=== PATIENT | female | born 1985 | race Caucasian/White ===

== ENCOUNTER 2017-01-08 07:52 | Emergency (ER) | payer OTHER ==
--- NOTE | ~2017-01-08 | CT4 ---
[facility] A Service of [facility] RADIOLOGY TEXT RESULTS PATIENT: AMBER FLORIAN LOCATION: [facility] : 81 UNIT #: [id number] AGE: [address]: Rafia Tao MD SEX: F ORDER DR: [id number] [facility] [place], [place] [address] [id number] MR#: [id number] Acc #: [id number] NAME: AMBER FLORIAN. : 1985 SEX: F STUDY DATE/TIME: 01/08/2017 09:41 UNIT: [facility] ROOM: STUDY DESCRIPTION: CT Abd and Pelv Wo Cont Attending Physician: Rafia Tao M.D. Ordering Physician: Ed Doctor [id number] [facility] Primary Care Physician: Primary Care Physician No MEDICAL IMAGING REPORT This report is preliminary unless electronic signature is present EXAM CT abdomen and pelvis without contrast, 01/08/2017, 0941 hours. HISTORY 31-year-old woman with vomiting since 01/06/2017, right lower quadrant pain since 01/14/2017. COMPARISON 03/23/2014 CT scan. TECHNIQUE Helical noncontrasted images were obtained from the lung bases through the pubic symphysis. No oral or intravenous contrast was administered. Sagittal and coronal reconstructions were performed. Total exam DLP 1237 mGy-cm. This CT exam was performed with one or more of the following radiation dose reduction techniques: automatic exposure control, adjustment of mA and/or kV according to patient size, and iterative reconstruction. FINDINGS Images through the lung bases are clear. There are no effusions. Noncontrasted images through the abdomen demonstrate a normal appearance to the liver, spleen, pancreas, gallbladder, bile ducts, adrenal glands and kidneys. There are no renal or ureteral calculi. The bladder appears normal. The unopacified stomach is contracted but normal in appearance. There is no small bowel distension or small bowel wall thickening. The terminal ileum, cecum, and appendix are normal. There is no evidence of colonic distension or colonic wall thickening. 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 I do not identify the right ovary. Left ovary is present and normal in appearance. There is no pelvic free fluid. There is a small ventral midline hernia in the abdominal wall just cephalad to the umbilicus which contains only omental fat. This is new from 03/23/2014. No bowel involvement is seen. IMPRESSION 1. Negative noncontrasted CT of the abdomen and pelvis. There are no renal or ureteral calculi. The small bowel, appendix, and cecum are normal. 2. Interval hysterectomy and right oophorectomy. Left ovary appears normal. 3. There is very small fat containing ventral hernia in the midline upper abdomen just cephalad to the umbilicus which is new from 03/23/2014. No bowel involvement is seen. Dictated by... Amber Kent M.D. THIS IS AN ELECTRONICALLY VERIFIED REPORT Amber Kent M.D. at 01/09/2017 8:58 AM JEREMIAH/pricila TD: 01/08/2017 10:47 JOB #: [id number] MEDICAL IMAGING REPORT COPY
[~2017-01-08 07:52] MED LIST: BIRTH CONTROL PILL; CIPRO PO; DIFLUCAN PO; EC-NAPROSYN500 MG PO; FIORICET W/CODE1 CAP PO; FLAGYL PO; FLEXERIL PO; FLEXERIL10 MG PO; IRON; KETOPROFEN PO; LORTAB 7.5-5001 TAB PO; MEDROL DOSEPAK4 MG DOB; MEDROL DOSEPAK4 MG PO; MEDROL PO; MIRALAX17 GM PO; MOTRIN20 MG/ML PO; NO MEDICATIONS; ORUDIS75 M1 DOB; ORUDIS75 M1 PO; PAROXETINE HCL20 M1 PO; PAXIL PO; PHENERGAN PO; PHENERGAN25 MG PO; PRAZOSIN HCL2 MG PO; PRENATAL VITAMI1 TA3; PYRIDIUM PO; ULTRAM PO; VICODIN 5/500 T1 TAB PO; VICODIN PO; ZANAFLEX4 M1 PO
[2017-01-08 08:23] LABS: URINE SOURCE CLEAN CATCH
[2017-01-08 08:28] LABS: BASOPHIL% 0.4 % (0-2.5); EOSINOPHIL# 0.1 X10e3 (0-0.7); EOSINOPHIL% 1.1 % (0.0-7.0); HEMATOCRIT 40.6 % (35.0-45.0); HEMOGLOBIN 13.7 gm/dL (12.0-16.0); LYMPHOCYTE# 1.6 X10e3 (1.0-3.5); LYMPHOCYTE% 14.2 % (17.0-45.0); MEAN CELL VOLUME 91.1 FL (83-96); MEAN CORPUSCULAR HEMOGLOBIN 30.8 PG (28-34); MEAN CORPUSCULAR HGB CONC 33.8 g/dL (30-36); MEAN PLATELET VOLUME 7.3 FL (6.5-11.5); MONOCYTE# 0.6 X10e3 (0-1.0); MONOCYTE% 5.9 % (3.0-12.0); NEUTROPHIL# 8.6 X10e3 (1.5-7.1); NEUTROPHIL% 78.4 % (40-75); PLATELET COUNT 358 X10e3 (140-420); RED BLOOD COUNT 4.46 X10e (3.90-5.30); RED CELL DISTRIBUTION WIDTH 12.9 % (11.0-15.5); WHITE BLOOD COUNT 10.9 X10e3 (4.0-10.5)
[2017-01-08 08:29] LABS: URINE APPEARANCE CLEAR; URINE BILIRUBIN NEG (NEG); URINE BLOOD NEG (NEG); URINE COLOR YELLOW; URINE GLUCOSE NEG (NEG); URINE KETONE NEG (NEG); URINE LEUKOCYTE ESTERASE TRACE (NEG); URINE NITRATE NEG (NEG); URINE PROTEIN NEG (NEG); URINE SPECIFIC GRAVITY 1.023 (1.003-1.035)
[2017-01-08 08:32] LABS: CULTURE INDICATED? YES; DIFF IND NO; URBCS1 AUWI 0-2 /[HPF] (0-2); URINE BACTERIA AUWI 1+ (NEGATIVE); URINE SQUAMOUS EPITHELIAL CELL OCC /[HPF]
[2017-01-08 08:54] LABS: ALKALINE PHOSPHATASE 50 U/L (32-92); ALT (SGPT) 16 U/L (10-40); AMYLASE 18 U/L (0-46); AST (SGOT) 18 U/L (10-42); BILIRUBIN, DIRECT 0.1 mg/dL (0.0-0.2); BILIRUBIN,INDIRECT 0.4 mg/dL (0.0-0.9); BILIRUBIN,TOTAL 0.5 mg/dL (0.2-2.0); BLOOD UREA NITROGEN 10 mg/dL (9-23); CALCIUM SERUM 9.1 mg/dL (8.4-10.2); CARBON DIOXIDE 26 mmol/L (22-31); CHLORIDE 100 mmol/L (100-111); CREATININE SERUM 0.8 mg/dL (0.6-1.4); GLOM FILT RATE Estimated ABOVE60 mL/min (>60); GLUCOSE FASTING 97 mg/dL (70-110); LIPASE 20 U/L (22-51); POTASSIUM 3.7 mmol/L (3.5-5.1); PROTEIN TOTAL SERUM 7.3 g/dL (6.0-8.3); SODIUM 135 mmol/L (135-145)
== END 2017-01-08 11:51 | disposition home or self-care (01) ==
LOC: CED 07:52
PROVIDERS: Nurse Practitioner
DX: R11.2 Nausea with vomiting, unspecified (principal); R19.7 Diarrhea, unspecified; F43.10 Post-traumatic stress disorder, unspecified; Z90.710 Acquired absence of both cervix and uterus; Z88.5 Allergy status to narcotic agent; F17.210 Nicotine dependence, cigarettes, uncomplicated
CPT/HCPCS: 36415; 74176; 80048; 80076; 81003; 82150; 83690; 84703; 85025; 87086; 96360; 99284; J2405